=== PATIENT | male | born 1955 | race Caucasian/White ===

== ENCOUNTER → 2023-12-30 06:28 | Outpatient (REF) | payer BC, SELFPAY | LOC: HWRAD 06:28 | PROVIDERS: ATTENDING PHYSICIAN Nurse Practitioner Family | DX: M25.561 Pain in right knee (principal) | CPT/HCPCS: 73564 ==

== ENCOUNTER 2025-05-15 06:23 | Day surgery (SDC) | payer MEDICARE, OTHER, SELFPAY | END 2025-05-15 14:55 | disposition home or self-care (01) | LOC: GI 06:23 | PROVIDERS: ATTENDING PHYSICIAN Internal Medicine Gastroenterology | DX: Z12.11 Encounter for screening for malignant neoplasm of colon (principal); K57.30 Diverticulosis of large intestine without perforation or abscess without bleeding; K64.9 Unspecified hemorrhoids; D12.3 Benign neoplasm of transverse colon; D12.5 Benign neoplasm of sigmoid colon; K63.5 Polyp of colon | CPT/HCPCS: 45385; 45380; 88305 ==